=== PATIENT | female | born 1945 | race Caucasian/White ===

== ENCOUNTER 2018-06-12 09:19 | Day surgery (SDC) | payer MEDICARE, OTHER, SELFPAY ==
[2018-06-12 10:22] VITALS: BP 135/87; PULSE 61; RESP 15; TEMP 36.3; O2SAT 98; BMI 22.5
[2018-06-12] MEDS: PROPARACAINE 0.5% OPHTH SOL 2 DROPS EYE-OP (10:25)
[2018-06-12] MEDS: CATARACT EYE COMPOUND (10 DROPS/SYRINGE) 3 DROPS EYE-OP (10:40)
--- NOTE | 2018-06-12 11:27 | P.OP_ITS ---
Operative Date/Time/Diagnoses Pre-op diagnosis: Cataract Right eye Post-op diagnosis: same Procedure & Clinicians Procedure: Cataract Surgery Same procedure as scheduled: Yes Surgeon: [place] Anesthesia Type: MAC +/- and Sedation Operative Notes Procedure in detail: Patient brought to the operating suite. Tetracaine drops placed in the right eye. Patient was prepped and draped in sterile manner. Wire lid speculum was placed in the eye. Betadine drops were placed on the eye. This was irrigated. Lidocaine jelly was placed on the eye. A paracentesis port was created with a side-port blade. 0.1 mL 1% preservative free lidocaine was injected into the anterior chamber. The anterior chamber was deepened with viscoelastic. 2.6 mm keratome was used to create a temporal clear corneal incision. Cystotome and Utrata forceps were used to create continuous tear capsulorrhexis. Balanced salt solution was used to hydro dissect the nucleus. The phacoemulsification handpiece was inserted and the nucleus was removed using the stop and chop technique. The irrigation aspiration handpiece was inserted and the remaining cortex was removed. Anterior chamber was deepened with viscoelastic. An Jones ZCB00 intraocular lens with a power of 15.5 was injected into the capsular bag. Irrigation aspiration handpiece was inserted and the remaining viscoelastic was removed. Incision was hydrated with balanced salt solution and found to be leak free with pressure with Weck- Berta sponges. 0.1 mL Vigamox injected anterior chamber. 0.3 mL Kenalog 10 mg was injected subconjunctivally. Lid speculum was removed. The patient left the operating room in excellent condition. Complications: none Condition: stable Disposition: same day surgery
--- NOTE | 2018-06-12 11:27 | P.OP.PRE_ITS ---
Pre-operative Note Interval Note Changes: No
--- NOTE | 2018-06-12 11:27 | PM.PREOP ---
Pre-operative Note Interval Note Changes: No
[2018-06-12] MEDS: MOXIFLOXACIN OPHTH DROPS 3 ML BOTTLE 2 DROPS INJ (11:42)
[2018-06-12] MEDS: PHENYLEPHRINE/LIDOCAINE VIAL (OR) 0.2 ML EYE-OP (11:42)
[2018-06-12] MEDS: TETRACAINE 0.5% OPHTH DROPS 15 ML 2 DROPS EYE-RIGHT (11:42)
[2018-06-12] MEDS: CHONDROIDTIN/SOD HYALURONATE 1.05 ML SYRINGE INTRAOCULA (11:42)
[2018-06-12] MEDS: LIDOCAINE JELLY 2% 5 ML 1 APPLIC TOP (11:42)
[2018-06-12] MEDS: TRIAMCINOLONE 50 MG/5 ML VIAL INJ (11:43)
[2018-06-12] MEDS: BALANCED SALT IRRIG SOLN NO.2 500 ML, EPINEPHrine 1 MG IRR (11:43)
[2018-06-12 12:10] VITALS: BP 138/84; PULSE 63; RESP 16; TEMP 36.2; O2SAT 99
--- NOTE | 2018-06-12 12:12 | SUR.PHASEII ---
pt anxious to make ferry, ready to go soon after arrival left when ready left in stable condition.
== END 2018-06-12 12:05 ==
PROVIDERS: PCP Family Medicine; Visit Provider Ophthalmology
DX: H25.11 Age-related nuclear cataract, right eye (principal)
CPT/HCPCS: J0171; J2250; J3010; J3301